=== PATIENT | male | born 1995 | race American Indian/Alaskan Native ===

== ENCOUNTER 2016-04-15 16:23 | Emergency (ER) | payer MEDICAID | END 2016-04-15 17:24 | disposition left against medical advice (07) | LOC: ED 16:23 | DX: J02.9 Acute pharyngitis, unspecified (principal); J11.1 Influenza due to unidentified influenza virus with other respiratory manifestations; R50.9 Fever, unspecified; Z53.21 Procedure and treatment not carried out due to patient leaving prior to being seen by health care provider ==

== ENCOUNTER 2016-05-30 18:59 | Emergency (ER) | payer MEDICAID ==
[2016-05-30 19:37] LABS: Basophils % (Auto) 0.8 % (0.0-1.8); Hematocrit 42.1 % (35.5-45.6); Hemoglobin 13.9 gm/dl (11.8-15.2); Mean Corpuscular HGB Conc 33 % (32-34); Mean Corpuscular Hemoglobin 26 pg (28-32); Mean Corpuscular Volume 79 fl (84-94); Platelet Count 305 K/mm3 (140-440); Red Blood Count 5.32 M/mm3 (3.65-5.03); Red Cell Distribution Width 13.5 % (13.2-15.2); White Blood Count 7.3 K/mm3 (4.5-11.0)
[2016-05-30 19:55] LABS: Alanine Aminotransferase 40 units/L (7-56); Albumin 4.2 g/dL (3.9-5); Albumin/Globulin Ratio 1.5 %; Alkaline Phosphatase 110 units/L (35-129); Anion Gap 18 mmol/L; BUN/Creatinine Ratio 13.33; Bilirubin,Total 0.4 mg/dL (0.1-1.2); Blood Urea Nitrogen 12 mg/dL (9-20); Calcium 9.4 mg/dL (8.4-10.2); Carbon Dioxide 25 mmol/L (22-30); Chloride 97.3 mmol/L (98-107); Glucose 100 mg/dL (75-100); Lipase 24 units/L (13-60); Potassium 4.1 mmol/L (3.6-5.0); Sodium 136 mmol/L (137-145)
[2016-05-30 20:08] LABS: Bacteria,Urine 1+ /HPF (Negative); Bilirubin,Urine NEG (Negative); Blood,Urine NEG (Negative); Ketones,Urine 20 mg/dL (Negative); Leukocyte Esterase,Urine TR (Negative); Mucus,Urine 2+ /HPF; Nitrite,Urine NEG (Negative); Protein,Urine <15 mg/dL mg/dL (Negative); Urobilinogen,Urine < 2.0 mg/dL (<2.0)
[2016-05-30] MEDS ORDERED: ZOFRAN IV ONE (23:08)
[2016-05-30] MEDS ORDERED: PEPCID IV ONE (23:08)
[2016-05-30] MEDS ORDERED: TORADOL IV ONE (23:08)
--- NOTE | 2016-05-30 23:23 | Emergency Department Report ---
ED Abdominal Pain HPI - General Chief Complaint: Abdominal Pain Stated Complaint: NAUSEA/VOMITING Time Seen by Provider: 05/30/16 23:05 Source: patient Mode of arrival: Ambulatory Limitations: No Limitations - History of Present Illness Initial Comments: 20-year-old malecan past medical history or surgical history presents to the hospital complains of nausea, vomiting, and diarrhea since yesterday. Patient has been able to tolerate very little by mouth intake with exception of some liquids. Complains of intermittent mid 7/10 aching cramping abdominal pain. Worse With palpation. No alleviating factors. Denies fever, melena, hematochezia, hematemesis, sick contacts, or recent travel. Severity scale (0 -10): 0 - Related Data Previous Rx's Medication Instructions Recorded Last Taken Type HYDROcodone/APAP 5-325 [[place] 1 each PO Q6HR PRN #15 tablet 09/21/14 Unknown Rx 5/325] Ibuprofen [Motrin 800 MG tab] 800 mg PO Q8H PRN #30 tablet 09/21/14 Unknown Rx ALBUTEROL Inhaler [Proair] 2 puff IH QID PRN #200 inhalation 09/02/15 Unknown Rx Benzonatate [Tessalon Perles] 100 mg PO Q8HR #15 capsule 09/02/15 Unknown Rx methylPREDNISolone [Medrol] 4 mg PO QAM #1 tab.ds.pk 09/02/15 Unknown Rx Loperamide [Imodium] 2 mg PO Q2HR PRN #14 capsule 05/31/16 Unknown Rx Ondansetron [Zofran Odt] 4 mg PO Q8HR PRN #20 tab.rapdis 05/31/16 Unknown Rx traMADol [Ultram 50 MG tab] 50 mg PO Q6HR PRN #20 tablet 05/31/16 Unknown Rx Allergies Allergy/AdvReac Type Severity Reaction Status Date / Time No Known Allergies Allergy Unverified 01/23/13 08:24 ED Review of Systems ROS: Stated complaint: NAUSEA/VOMITING Other details as noted in HPI Comment: All other systems reviewed and negative Other: Constitutional: No fevers chills Eyes: No eye pain visual changes ENT: No ear pain or throat pain Neck: Denies pain Respiratory: Denies cough wheezing shortness of breath Cardiovascular: Denies chest pain, palpitations, syncope GI: As per HPI : Denies dysuria Musculoskeletal: Denies back pain, joint swelling Skin: Denies rash, lesions, erythema Neurologic: Denies headache, numbness, weakness Psychiatric: Denies suicidal ideation, hallucinations ED Past Medical Hx - Past Medical History Previous Medical History?: No - Surgical History Past Surgical History?: No - Social History Smoking Status: Never Smoker Substance Use Type: None - Medications Home Medications: Home Medications Medication Instructions Recorded Confirmed Last Taken Type HYDROcodone/APAP 5-325 [[place] 1 each PO Q6HR PRN #15 tablet 09/21/14 Unknown Rx 5/325] Ibuprofen [Motrin 800 MG tab] 800 mg PO Q8H PRN #30 tablet 09/21/14 Unknown Rx ALBUTEROL Inhaler [Proair] 2 puff IH QID PRN #200 inhalation 09/02/15 Unknown Rx Benzonatate [Tessalon Perles] 100 mg PO Q8HR #15 capsule 09/02/15 Unknown Rx methylPREDNISolone [Medrol] 4 mg PO QAM #1 tab.ds.pk 09/02/15 Unknown Rx Loperamide [Imodium] 2 mg PO Q2HR PRN #14 capsule 05/31/16 Unknown Rx Ondansetron [Zofran Odt] 4 mg PO Q8HR PRN #20 tab.rapdis 05/31/16 Unknown Rx traMADol [Ultram 50 MG tab] 50 mg PO Q6HR PRN #20 tablet 05/31/16 Unknown Rx ED Physical Exam - General Limitations: No Limitations - Other Other exam information: General: No limitations, patient is alert in no acute distress Head exam: Atraumatic, normocephalic Eyes exam: Normal appearance, pupils equal reactive to light, extraocular movements intact ENT: Moist mucous membrane, normal oropharynx Neck exam: Normal inspection, full range of motion, no meningismus nontender Respiratory exam: Clear to auscultation bilateral, no wheezes, rales, crackles Cardiovascular: Normal rate and rhythm, normal heart sounds Abdomen: Soft, nondistended,. periumbilical and epigastric tenderness, with normal bowel sounds, no rebound, or guarding. No right lower quadrant tenderness Extremity: Full range of motion normal inspection no deformity Back: Normal Inspection, full range of motion, no tenderness Neurologic: Alert, oriented x3, cranial nerves intact, no motor or sensory deficit Psychiatric: normal affect, normal mood Skin: Warm, dry, intact ED Course Vital Signs 02/23/17 02/23/17 02/24/17 19:03 22:33 00:00 Temperature 98.5 F Pulse Rate 93 H 72 78 Respiratory 18 16 18 Rate Blood Pressure 154/100 Blood Pressure 146/84 134/76 [Left] O2 Sat by Pulse 99 100 98 Oximetry - Reevaluation(s) Reevaluation #1: 05/31/16 01:56 After ED treatment involving D5 and S, Zofran, and Toradol patient reports improvement in pain and symptoms. Able to tolerate crackers and liquids in the ED ED Medical Decision Making - Lab Data Result diagrams: 05/30/16 19:21 05/30/16 19:21 Lab Results 05/30/16 05/30/16 05/30/16 Range/Units 19:21 19:21 19:31 WBC 7.3 (4.5-11.0) K/mm3 RBC 5.32 H (3.65-5.03) M/mm3 Hgb 13.9 (11.8-15.2) gm/dl Hct 42.1 (35.5-45.6) % MCV 79 L (84-94) fl MCH 26 L (28-32) pg MCHC 33 (32-34) % RDW 13.5 (13.2-15.2) % Plt Count 305 (140-440) K/mm3 Lymph % (Auto) 31.5 (13.4-35.0) % [place] % (Auto) 8.5 H (0.0-7.3) % Eos % (Auto) 2.0 (0.0-4.3) % Baso % (Auto) 0.8 (0.0-1.8) % Lymph # 2.3 (1.2-5.4) K/mm3 [place] # 0.6 (0.0-0.8) K/mm3 Eos # 0.1 (0.0-0.4) K/mm3 Baso # 0.1 (0.0-0.1) K/mm3 Seg Neutrophils % 57.2 (40.0-70.0) % Seg Neutrophils # 4.2 (1.8-7.7) K/mm3 Sodium 136 L (137-145) mmol/L Potassium 4.1 (3.6-5.0) mmol/L Chloride 97.3 L (98-107) mmol/L Carbon Dioxide 25 (22-30) mmol/L Anion Gap 18 mmol/L BUN 12 (9-20) mg/dL Creatinine 0.9 (0.8-1.5) mg/dL Estimated GFR > 60 ml/min BUN/Creatinine Ratio 13.33 % Glucose 100 (75-100) mg/dL Calcium 9.4 (8.4-10.2) mg/dL Total Bilirubin 0.4 (0.1-1.2) mg/dL AST 31 (5-40) units/L ALT 40 (7-56) units/L Alkaline Phosphatase 110 (35-129) units/L Total Protein 7.0 (6.3-8.2) g/dL Albumin 4.2 (3.9-5) g/dL Albumin/Globulin Ratio 1.5 % Lipase 24 (13-60) units/L Urine Color Yellow (Yellow) Urine Turbidity Clear (Clear) Urine pH 6.0 (5.0-7.0) Ur Specific [place] 1.029 (1.003-1.030) Urine Protein <15 mg/dl (Negative) mg/dL Urine Glucose (UA) Neg (Negative) mg/dL Urine Ketones 20 (Negative) mg/dL Urine Blood Neg (Negative) Urine Nitrite Neg (Negative) Urine Bilirubin Neg (Negative) Urine Urobilinogen < 2.0 (<2.0) mg/dL Ur Leukocyte Esterase Tr (Negative) Urine WBC (Auto) 5.0 (0.0-6.0) /HPF Urine RBC (Auto) 1.0 (0.0-6.0) /HPF U Epithel Cells (Auto) 1.0 (0-13.0) /HPF Urine Bacteria (Auto) 1+ (Negative) /HPF Urine Mucus 2+ /HPF - EKG Data When compared to previous EKG there are: no significant change - Medical Decision Making Plan to discharge patient home with diagnosis of acute gastroenteritis/stomach virus. Patient tolerating by mouth intake. Educated on symptoms of appendicitis and to return if he develops right lower quadrant pain, fever, persistent vomiting and diarrhea. Patient is stable for discharge at this time - Differential Diagnosis gastritis, gastroenteritis, appendicitis, diverticulitis Critical Care Time: No Critical care attestation.: If time is entered above; I have spent that time in minutes in the direct care of this critically ill patient, excluding procedure time. ED Disposition Clinical Impression: Gastroenteritis, Dehydration Disposition: DISCHARGED TO HOME OR SELFCARE Is pt being admited?: No Does the pt Need Aspirin: No Condition: Stable Instructions: Gastroenteritis (ED) Additional Instructions: Patient to medication as needed for nausea, vomiting, diarrhea, and pain. If he develops fevers, pain in the right lower part of your abdomen, or persistent symptoms unable to eat or drink anything please return to the ER for evaluation. Otherwise follow-up with the primary care doctor or clinic provided. Prescriptions: Loperamide [Imodium] 2 mg PO Q2HR PRN #14 capsule PRN Reason: Diarrhea Ondansetron [Zofran Odt] 4 mg PO Q8HR PRN #20 tab.rapdis PRN Reason: Nausea And Vomiting traMADol [Ultram 50 MG tab] 50 mg PO Q6HR PRN #20 tablet PRN Reason: Pain Referrals: PRIMARY CARE, [Primary Care Provider] - 3-5 Days CHAPARRITA HUTCHISON MD [Staff Physician] - 3-5 Days [facility] [Provider Group] - 3-5 Days Time of Disposition: 01:58
[2016-05-30] MEDS ORDERED: D5NS 1,000 ML IV SCH (23:45)
[2016-05-31] MEDS ORDERED: D5NS 1,000 ML IV ONE ×2 (00:21→02:00)
[2016-05-31 02:28] VITALS: BP 136/72
== END 2016-05-31 02:29 | disposition home or self-care (01) ==
LOC: ED 18:59
DX: K52.9 Noninfective gastroenteritis and colitis, unspecified (principal); E86.0 Dehydration
CPT/HCPCS: 36415; 80053; 81001; 83690; 85025; 96361; 96374; 96375; 99283; J1885; J2405; J7042

== ENCOUNTER 2021-08-17 09:04 | Emergency (ER) | payer MEDICAID, OTHER ==
[2021-08-17] MEDS ORDERED: predniSONE 20 MG TAB PO ONE (13:20)
[2021-08-17] MEDS ORDERED: ACETAMINOPHEN W/CODEINE 300-30 MG TAB PO ONE (13:20)
[2021-08-17] MEDS ORDERED: KETOROLAC 10 MG TAB PO ONE (13:20)
[2021-08-17] MEDS ORDERED: BENZONATATE 100 MG CAP PO ONE (13:20)
--- NOTE | 2021-08-17 14:01 | XRay Report ---
CHEST 2 VIEWS INDICATION / CLINICAL INFORMATION: fever, cough, sob. COMPARISON: None available. FINDINGS: SUPPORT DEVICES: None. HEART / MEDIASTINUM: No significant abnormality. LUNGS / PLEURA: No significant pulmonary or pleural abnormality. No pneumothorax. ADDITIONAL FINDINGS: No significant additional findings. IMPRESSION: 1. No acute findings. Signer Name: Angel Alfredo MD Signed: 08/17/2021 1:57 PM Workstation Name: [employer]
--- NOTE | 2021-08-17 14:28 | Emergency Department Report ---
- General Chief Complaint: Upper Respiratory Infection Stated Complaint: POSSIBLE VIRUS Time Seen by Provider: 08/17/21 13:19 Source: patient Mode of arrival: Ambulatory Limitations: No Limitations - History of Present Illness Initial Comments: 26-year-old black male with no past medical history presents to the emergency department for evaluation of few day history of cough, congestion, loss of appetite, nausea, and weakness. He states that on Friday he had his son and his son had some cough and congestion then he developed same symptoms on Friday and they have been getting progressively worse since then. He denies fever but states that his told him that he felt like he was warm, he denies shortness of breath, vomiting. He states that he has not taken any medication for symptoms at home. MD Complaint: fever, cough, sore throat, rhinorrhea, nasal congestion, sinus pain -: Gradual, days(s) (4-5) Severity: severe Severity scale (0 -10): 8 Quality: aching Consistency: constant Worsens With: activity, deep breaths Context: sick contacts Associated Symptoms: fever, chills, myalgias, headache, rhinorrhea, nasal congestion, sore throat, cough, chest pain, nausea. denies: diaphoresis, stiff neck, shortness of breath, abdominal pain, vomiting, diarrhea, dysuria, rash, hoarseness, ear pain Treatments Prior to Arrival: none - Related Data Previous Rx's Medication Instructions Recorded Last Taken Type HYDROcodone/APAP 5-325 [[place] 1 each PO Q6HR PRN #15 tablet 09/21/14 Unknown Rx 5/325] Ibuprofen [Motrin 800 MG tab] 800 mg PO Q8H PRN #30 tablet 09/21/14 Unknown Rx Albuterol Mdi (or & Nicu Only) 2 puff IH QID PRN #200 inhalation 09/02/15 Unknown Rx [Proair] Benzonatate [Tessalon Perles] 100 mg PO Q8HR #15 capsule 09/02/15 Unknown Rx methylPREDNISolone [Medrol] 4 mg PO QAM #1 tab.ds.pk 09/02/15 Unknown Rx Loperamide [Imodium] 2 mg PO Q2HR PRN #14 capsule 05/31/16 Unknown Rx Ondansetron [Zofran Odt] 4 mg PO Q8HR PRN #20 tab.rapdis 05/31/16 Unknown Rx traMADoL [Ultram 50 MG tab] 50 mg PO Q6HR PRN #20 tablet 05/31/16 Unknown Rx Benzonatate [Tessalon Perles] 100 mg PO Q8HR #21 cap 08/17/21 Unknown Rx Levocetirizine Dihydrochloride 5 mg PO QPM #15 tab 08/17/21 Unknown Rx [Xyzal] Prednisone [predniSONE 10 mg 10 mg PO .TAPER #1 pack 08/17/21 Unknown Rx (6-Day Pack, 21 Tabs)] guaiFENesin/CODEINE [Robitussin AC] 10 ml PO TID PRN #120 ml 08/17/21 Unknown Rx Allergies Allergy/AdvReac Type Severity Reaction Status Date / Time No Known Allergies Allergy Unverified 01/23/13 08:24 ED Review of Systems ROS: Stated complaint: POSSIBLE VIRUS Other details as noted in HPI Comment: All other systems reviewed and negative Constitutional: chills, fever, weakness Eyes: denies: vision change ENT: throat pain, congestion Respiratory: cough. denies: orthopnea, shortness of breath, SOB with exertion, SOB at rest, stridor, wheezing Cardiovascular: chest pain (Only when coughing). denies: palpitations, dyspnea on exertion, orthopnea, edema, syncope, paroxysmal nocturnal dyspnea Gastrointestinal: denies: abdominal pain, nausea, vomiting, diarrhea, hematemesis, melena, hematochezia Genitourinary: denies: urgency, dysuria, frequency, hematuria, discharge, testicular pain Musculoskeletal: denies: back pain Skin: denies: rash, lesions Neurological: headache, weakness. denies: numbness, paresthesias, confusion, abnormal gait Hematological/Lymphatic: denies: easy bleeding, easy bruising ED Past Medical Hx - Past Medical History Previous Medical History?: No - Surgical History Past Surgical History?: No - Social History Smoking Status: Never Smoker Substance Use Type: None - Medications Home Medications: Home Medications Medication Instructions Recorded Confirmed Last Taken Type HYDROcodone/APAP 5-325 [[place] 1 each PO Q6HR PRN #15 tablet 09/21/14 Unknown Rx 5/325] Ibuprofen [Motrin 800 MG tab] 800 mg PO Q8H PRN #30 tablet 09/21/14 Unknown Rx Albuterol Mdi (or & Nicu Only) 2 puff IH QID PRN #200 inhalation 09/02/15 Unknown Rx [Proair] Benzonatate [Tessalon Perles] 100 mg PO Q8HR #15 capsule 09/02/15 Unknown Rx methylPREDNISolone [Medrol] 4 mg PO QAM #1 tab.ds.pk 09/02/15 Unknown Rx Loperamide [Imodium] 2 mg PO Q2HR PRN #14 capsule 05/31/16 Unknown Rx Ondansetron [Zofran Odt] 4 mg PO Q8HR PRN #20 tab.rapdis 05/31/16 Unknown Rx traMADoL [Ultram 50 MG tab] 50 mg PO Q6HR PRN #20 tablet 05/31/16 Unknown Rx Benzonatate [Tessalon Perles] 100 mg PO Q8HR #21 cap 08/17/21 Unknown Rx Levocetirizine Dihydrochloride 5 mg PO QPM #15 tab 08/17/21 Unknown Rx [Xyzal] Prednisone [predniSONE 10 mg 10 mg PO .TAPER #1 pack 08/17/21 Unknown Rx (6-Day Pack, 21 Tabs)] guaiFENesin/CODEINE [Robitussin AC] 10 ml PO TID PRN #120 ml 08/17/21 Unknown Rx ED Physical Exam - General Limitations: No Limitations General appearance: alert, in no apparent distress - Head Head exam: Present: atraumatic, normocephalic - Eye Eye exam: Present: normal appearance. Absent: conjunctival injection - ENT ENT exam: Present: mucous membranes moist. Absent: normal exam (Bilateral nasal mucosa edema and bilateral turbinate swelling with pain on palpation to bilateral frontal and maxillary sinus areas.), normal orophraynx (Erythema noted to posterior oropharynx) - Neck Neck exam: Present: normal inspection, full ROM. Absent: tenderness, lymphadenopathy - Respiratory Respiratory exam: Present: normal lung sounds bilaterally, chest wall tenderness. Absent: respiratory distress, wheezes, rales, rhonchi, stridor - Cardiovascular Cardiovascular Exam: Present: regular rate, normal heart sounds - GI/Abdominal GI/Abdominal exam: Present: soft, normal bowel sounds. Absent: distended, tenderness, guarding, rebound, rigid - Extremities Exam Extremities exam: Present: normal inspection, full ROM, normal capillary refill. Absent: pedal edema, joint swelling, calf tenderness - Back Exam Back exam: Present: normal inspection. Absent: CVA tenderness (R), CVA tenderness (L), vertebral tenderness - Neurological Exam Neurological exam: Present: alert, oriented X3, normal gait - Psychiatric Psychiatric exam: Present: normal affect, normal mood - Skin Skin exam: Present: warm, dry, intact, normal color ED Course Vital Signs 08/17/21 10:05 Temperature 100.8 F H Pulse Rate 95 H Respiratory 20 Rate Blood Pressure 123/80 O2 Sat by Pulse 96 Oximetry - Reevaluation(s) Reevaluation #1: 08/17/21 14:47 Symptoms improved after medication. ED Medical Decision Making - Radiology Data Radiology results: report reviewed, image reviewed Chest x-ray: FINDINGS: SUPPORT DEVICES: None. HEART / MEDIASTINUM: No significant abnormality. LUNGS / PLEURA: No significant pulmonary or pleural abnormality. No pneumothorax. ADDITIONAL FINDINGS: No significant additional findings. IMPRESSION: 1. No acute findings. - Medical Decision Making 26-year-old black male with no past medical history presents to the emergency department for evaluation of few day history of cough, congestion, loss of appetite, nausea, and weakness. He states that on Friday he had his son and his son had some cough and congestion then he developed same symptoms on Friday and they have been getting progressively worse since then. He denies fever but states that his told him that he felt like he was warm, he denies shortness of breath, vomiting. He states that he has not taken any medication for symptoms at home. Chest x-ray without any acute abnormalities noted. Assessment consistent with URI with cough and congestion along with some sinusitis. Patient will be treated with prednisone pack, Tessalon Perles, Robitussin-AC, and Xyzal to take at home. He is advised to take medications as prescribed and follow-up with primary care provider if no improvement or worsening symptoms. He is advised to return to the emergency department as needed. He verbalized understanding of and agreement with plan of care. Critical care attestation.: If time is entered above; I have spent that time in minutes in the direct care of this critically ill patient, excluding procedure time. ED Disposition Clinical Impression: URI with cough and congestion Disposition: HOME / SELF CARE / HOMELESS Is pt being admited?: No Does the pt Need Aspirin: No Condition: Stable Instructions: Upper Respiratory Infection, Adult, [id number] Additional Instructions: Take medications as prescribed. Follow-up with primary care provider if no improvement or worsening symptoms. Return to the emergency department as needed. Prescriptions: Prednisone [predniSONE 10 mg (6-Day Pack, 21 Tabs)] 10 mg PO .TAPER #1 pack guaiFENesin/CODEINE [Robitussin AC] 10 ml PO TID PRN #120 ml PRN Reason: Cough Benzonatate [Tessalon Perles] 100 mg PO Q8HR #21 cap Levocetirizine Dihydrochloride [Xyzal] 5 mg PO QPM #15 tab Referrals: OLEG JOHNSON MD [Staff Physician] - 3-5 Days Forms: Work/School Release Form(ED) Time of Disposition: 14:29
[2021-08-17 14:44] VITALS: BP 118/84
== END 2021-08-17 14:43 | disposition home or self-care (01) ==
LOC: ED 09:04
DX: J06.9 Acute upper respiratory infection, unspecified (principal); R05.9 Cough, unspecified; R09.81 Nasal congestion
CPT/HCPCS: 71046; 99283